=== PATIENT | male | born 1950 | race Caucasian/White ===

== ENCOUNTER 2017-03-06 14:53 | Emergency (ER) | payer OTHER ==
[2017-03-06 15:04] VITALS: BP 142/87
--- NOTE | 2017-03-06 15:27 | ED Physician Documentation ---
PD HPI LOWER EXT INJURY - Stated complaint Stated Complaint: L ANKLE PX - Chief complaint Chief Complaint: Ext Problem - History obtained from History obtained from: Patient, Family - History of Present Illness PD HPI LOW EXT INJURY LOCATION: Left, Ankle, Foot Type of injury: Twist Where injury occurred: Home Timing - onset: How many days ago (2) Timing - duration: Days (2) Timing - details: Gradual onset Pain level max: 5 Pain level now: 3 Improved by: Rest, Ice, Immobilization Worsened by: Moving, Palpating, Other (walking) Associated symptoms: Swelling. No: Weakness, Numbness, Tingling Contributing factors: No: Anticoagulated, Prior ortho surgery Recently seen: Not recently seen Review of Systems Neurologic: denies: Focal weakness, Numbness PD PAST MEDICAL HISTORY - Past Medical History Past Medical History: Yes Cardiovascular: Hypertension, High cholesterol Other Past Medical History: IBS - Present Medications Home Medications: Ambulatory Orders Medication Instructions Recorded Confirmed Nebivolol HCl [Bystolic] 0 mg PO DAILY 03/06/17 03/06/17 RX: Aspirin 81 mg PO DAILY 03/06/17 03/06/17 RX: Simvastatin 0 mg PO DAILY 03/06/17 03/06/17 RX: amLODIPine [Norvasc] 5 mg PO DAILY 03/06/17 03/06/17 - Allergies Allergies/Adverse Reactions: Allergies Allergy/AdvReac Type Severity Reaction Status Date / Time Penicillins Allergy Unknown Verified 03/06/17 15:05 - Social History Does the pt smoke?: No Smoking Status: Never smoker PD ED PE NORMAL - Vitals Vital signs reviewed: Yes - General General: Alert and oriented X 3, No acute distress - Derm Derm: Warm and dry - Extremities Extremities: Other (L foot/ankle - diffuse STS. NVI. TTP over lateral malleolus and dorsum of the midfoot. ) - Neuro Neuro: Alert and oriented X 3 - Psych Psych: Normal mood, Normal affect Results - Vitals Vitals: Vital Signs - 24 hr 03/06/17 15:01 Temperature 36.6 C Heart Rate 58 L Respiratory 16 Rate Blood Pressure 142/87 H O2 Saturation 96 Oxygen O2 Source Room air - Rads (name of study) L ankle xray Radiology: Prelim report reviewed, EMP read contemporaneously, See rad report ( Normal alignment of the ankle without evidence for acute fractures or dislocations. Asymmetric lateral ankle swelling is noted. ) L foot xray Radiology: Prelim report reviewed, EMP read contemporaneously, See rad report ( Normal foot radiography. ) PD MEDICAL DECISION MAKING - ED course Complexity details: reviewed results, re-evaluated patient, considered differential, d/w patient, d/w family ED course: Patient is a 67-year-old male with a left ankle sprain. No acute findings on x- ray. Placed in a gel splint. Declines crutches. Will use Motrin and Tylenol as needed for pain at home. Counseled regarding missed fractures secondary to acute swelling and may need repeat xrays if not improving. Patient and family counseled regarding signs and symptoms for which I believe and urgent re- evaluation would be necessary. Patient with good understanding of and agreement to plan and is comfortable going home at this time This document was made in part using voice recognition software. While efforts are made to proofread this document, sound alike and grammatical errors may occur. Departure - Departure Disposition: 01 Home, Self Care Clinical Impression: Left ankle sprain Qualifiers: Encounter type: initial encounter Involved ligament of ankle: unspecified ligament Qualified Code(s): S93.402A - Sprain of unspecified ligament of left ankle, initial encounter Condition: Good Instructions: ED Sprain Ankle W X Ray Follow-Up: your,doctor in 1 week [Other] Comments: You can use Motrin or Tylenol as needed for pain at home. Return if you worsen. You may bear weight as tolerated. If you are still having pain in 1 week, you should follow-up with your doctor for repeat evaluation.
--- NOTE | 2017-03-06 15:58 | XRAY Preliminary Report ---
Exam: XR Ankle 3 View LT IMPRESSION: 1. Normal alignment of the ankle without evidence for acute fractures or dislocations. 2. Asymmetric lateral ankle swelling is noted. [facility] SITE ID: [id number]
--- NOTE | 2017-03-06 16:00 | XRAY Preliminary Report ---
Exam: XR Foot 3 View LT IMPRESSION: Normal foot radiography. [facility] SITE ID: [id number]
--- NOTE | 2017-03-06 16:01 | XRAY Report ---
EXAM: LEFT ANKLE RADIOGRAPHY EXAM DATE: 03/06/2017 03:50 PM. CLINICAL HISTORY: Ankle/foot swelling s/p inversion injury. COMPARISON: None. TECHNIQUE: 3 views. FINDINGS: Bones: Normal. No fractures or bone lesions. Joints: Normal. No effusion. No subluxations. The ankle mortise is normally aligned. Soft Tissues: Soft tissue swelling at the lateral aspect of the ankle. IMPRESSION: 1. Normal alignment of the ankle without evidence for acute fractures or dislocations. 2. Asymmetric lateral ankle swelling is noted. [facility] Referring Provider Line: [phone] SITE ID: [id number]
--- NOTE | 2017-03-06 16:02 | XRAY Report ---
EXAM: LEFT FOOT RADIOGRAPHY EXAM DATE: 03/06/2017 03:50 PM. CLINICAL HISTORY: Ankle/foot swelling s/p inversion injury. COMPARISON: None. TECHNIQUE: 3 views. FINDINGS: Bones: Normal. No fractures or bone lesions. Joints: Normal. No subluxations. Soft Tissues: Normal. No soft tissue swelling. IMPRESSION: Normal foot radiography. [facility] Referring Provider Line: [phone] SITE ID: [id number]
== END 2017-03-06 16:16 | disposition home or self-care (01) ==
LOC: ED 14:53
DX: S93.402A Sprain of unspecified ligament of left ankle, initial encounter (principal); I10 Essential (primary) hypertension; X50.1XXA Overexertion from prolonged static or awkward postures, initial encounter; Y92.009 Unspecified place in unspecified non-institutional (private) residence as the place of occurrence of the external cause
CPT/HCPCS: 99283

== ENCOUNTER 2018-03-02 10:10 | Emergency (ER) | payer MEDICARE, OTHER ==
--- NOTE | 2018-03-02 12:17 | ED Physician Documentation ---
PD HPI HEENT - Stated complaint Stated Complaint: FACIAL SWELLING - Chief complaint Chief Complaint: General - History obtained from History obtained from: Patient - History of Present Illness Timing - onset: Yesterday Timing - details: Abrupt onset, Still present Location: Tooth (right upper tooth with pain and prior cavity, with worse pain and now swelling of gum and cheek.) Associated symptoms: No: Fever, Congestion, Rhinorrhea, Swollen nodes, Cough Similar symptoms before: Has not had sx before Recently seen: Not recently seen Review of Systems Constitutional: denies: Fever, Myalgias Nose: denies: Rhinorrhea / runny nose, Congestion Throat: reports: Dental pain / toothache. denies: Sore throat Cardiac: denies: Chest pain / pressure, Palpitations Respiratory: denies: Dyspnea, Cough GI: denies: Abdominal Pain, Vomiting Skin: denies: Rash, Lesions Neurologic: denies: Focal weakness, Numbness, Altered mental status, Headache PD PAST MEDICAL HISTORY - Past Medical History Past Medical History: Yes Cardiovascular: Hypertension, High cholesterol GI: Ulcerative colitis - Past Surgical History Past Surgical History: Yes General: Other - Present Medications Home Medications: Ambulatory Orders Medication Instructions Recorded Confirmed Aspirin 81 mg PO DAILY 03/06/17 03/06/17 Nebivolol HCl [Bystolic] 0 mg PO DAILY 03/06/17 03/06/17 Simvastatin 0 mg PO DAILY 03/06/17 03/06/17 amLODIPine [Norvasc] 5 mg PO DAILY 03/06/17 03/06/17 Clindamycin HCl [Cleocin HCl] 300 mg PO TID #21 capsule 03/02/18 Mesalamine [Delzicol] 03/02/18 Naproxen 375 mg PO BID #20 tablet 03/02/18 Tramadol HCl 50 mg PO Q6H PRN #20 tablet 03/02/18 - Allergies Allergies/Adverse Reactions: Allergies Allergy/AdvReac Type Severity Reaction Status Date / Time Penicillins Allergy Unknown Verified 03/02/18 10:18 - Social History Does the pt smoke?: No Smoking Status: Never smoker Does the pt drink ETOH?: No Does the pt have substance abuse?: No - Immunizations Immunizations are current?: No Immunizations: TDAP >10years/unknown, Other immun current PD ED PE NORMAL - Vitals Vital signs reviewed: Yes - General General: Alert and oriented X 3, No acute distress, Well developed/nourished - HEENT HEENT: Pharynx benign, Other (right cheek with swelling but no firmness nor area of fluctuance. Right upper canine tooth (only one remaining on that side) with decay and some swelling/tenderness of gum. No focal fluctuance. ) - Neck Neck: Supple, no meningeal sign, No adenopathy - Cardiac Cardiac: RRR, No murmur - Respiratory Respiratory: Clear bilaterally - Derm Derm: Normal color, Warm and dry, No rash Results - Vitals Vitals: Oxygen O2 Source Room air PD MEDICAL DECISION MAKING - ED course Complexity details: considered differential (feels diffusely swelling and not focal fluid in right cheek. Gum with swelling. Tooth with decay. ), d/w patient - Sepsis Event Vital Signs: Oxygen O2 Source Room air Departure - Departure Disposition: 01 Home, Self Care Clinical Impression: Infected dental caries, Right facial swelling Condition: Stable Record reviewed to determine appropriate education?: Yes Instructions: ED Dental Abscess Facial Cellulitis Prescriptions: Clindamycin HCl [Cleocin HCl] 300 mg PO TID #21 capsule Naproxen 375 mg PO BID #20 tablet Tramadol HCl 50 mg PO Q6H PRN #20 tablet PRN Reason: Pain Comments: Rinse with antiseptic mouthwash couple times a day. Naproxen twice daily for inflammation and pain. Add Tylenol or tramadol if needed for pain. Clindamycin as directed for a week for the infection. Since the tooth is decayed enough to allow germs into the root to cause us infection, it is likely the infection will return in the near future unless he get the tooth taken care of. Follow-up with a dentist for that. Discharge Date/Time: 03/02/18 12:52
[2018-03-02] MEDS ORDERED: CLINDAMYCIN 150 MG CAPSULE PO STA (12:30)
[2018-03-02] MEDS ORDERED: NAPROXEN 250 MG TABLET PO STA (12:30)
[2018-03-02 12:50] VITALS: BP 137/83
== END 2018-03-02 12:52 | disposition home or self-care (01) ==
LOC: ED 10:10
DX: K04.7 Periapical abscess without sinus (principal); K02.9 Dental caries, unspecified; R22.0 Localized swelling, mass and lump, head; I10 Essential (primary) hypertension
CPT/HCPCS: 99283; A9270

== ENCOUNTER 2023-09-25 11:01 | Emergency (ER) | payer MEDICARE ==
[2023-09-25 11:20] VITALS: O2SAT 100
[2023-09-25] MEDS ORDERED: LIDOCAINE 1% 2 ML VIAL SUBQ STA (12:36)
--- NOTE | 2023-09-25 13:03 | ED Physician Documentation ---
PD HPI Fall - Stated complaint Stated Complaint: LT EYE INJ - Chief complaint Chief Complaint: Laceration - History obtained from History obtained from: Patient, Family - History of Present Illness Mechanism of injury: Tripped Fall distance: Standing position Where injury occurred: Home Timing - onset: Today Injury(ies) location: Face Quality of pain: Pain Associated symptoms: No: LOC, AMS, Amnesia, Seizures, Ear drainage, Nasal drainage, Neck pain, Weakness, Paresthesias, Dyspnea, Nausea / vomiting, Hematemesis, Abdominal distension Symptoms improve with: Rest Worsens with: Movement, Palpation Contributing factors: No: Anticoagulated Similar symptoms before: Diagnosis (laceration) Recently seen: Not recently seen - Additional information Additional information: Kobi Kellogg is a 73-year-old male with a history of hypertension who presents today after a fall ground-level tripped over something outside and fell onto his left face. He has a laceration above his left eye. He has no issue with the eyesight or use of the eye he did not get knocked out he has no nausea diff iculty concentrating or dizziness. He denies any neck pain. He has not been ill recently. Review of Systems Constitutional: denies: Fever Respiratory: denies: Cough GI: denies: Nausea, Vomiting, Diarrhea Skin: reports: Laceration (s) PD PAST MEDICAL HISTORY - Past Medical History Past Medical History: Yes Cardiovascular: Hypertension, High cholesterol GI: Ulcerative colitis - Past Surgical History Past Surgical History: Yes General: Other - Present Medications Home Medications: Ambulatory Orders Medication Instructions Recorded Confirmed Aspirin 81 mg PO DAILY 03/06/17 03/06/17 Nebivolol HCl [Bystolic] 0 mg PO DAILY 03/06/17 03/06/17 Simvastatin 0 mg PO DAILY 03/06/17 03/06/17 amLODIPine [Norvasc] 5 mg PO DAILY 03/06/17 03/06/17 Mesalamine [Delzicol] 03/02/18 Naproxen 375 mg PO BID #20 tablet 03/02/18 Tramadol HCl 50 mg PO Q6H PRN #20 tablet 03/02/18 clindamycin HCL [Cleocin HCl] 300 mg PO TID #21 capsule 03/02/18 - Allergies Allergies/Adverse Reactions: Allergies Allergy/AdvReac Type Severity Reaction Status Date / Time Penicillins Allergy Unknown Verified 09/25/23 11:20 - Social History Does the pt smoke?: No Smoking Status: Never smoker Does the pt drink ETOH?: No Does the pt have substance abuse?: No - Immunizations Immunizations are current?: No Immunizations: TDAP >10years/unknown, Other immun current - POLST Patient has POLST: No PD ED PE NORMAL - Vitals Vital signs reviewed: Yes (tachy and hypertensive ) - General General: Alert and oriented X 3, No acute distress, Well developed/nourished - HEENT HEENT: PERRL, EOMI, Other (there is a 3.5cm laceration to the lateral aspect of the left eye above the eyebrow. The wound is clean and deeper structures are not involved. 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, No motor deficit, No sensory deficit, Normal speech Eye Opening: Spontaneous Motor: Obeys Commands Verbal: Oriented GCS Score: 15 - Psych Psych: Normal mood, Normal affect Results - Vitals Vitals: Vital Signs - 24 hr 09/25/23 11:17 Temperature 36.4 C L Heart Rate 101 H Respiratory 20 Rate Blood Pressure 150/93 H O2 Saturation 100 Oxygen O2 Source Room air Procedures - Laceration (location) left face Length in cm: 3.5 Wound type: Linear, Flap, Into subcut fat, Clean Neurovascular status: Sensory intact, Motor intact, Vascular intact Anesthesia: Lidocaine 1% Wound preparation: Hibiclens, Irrigated copiously NS, Wound explored, To the base Skin layer closure: Nylon, Interrupted, Size #-0 - enter number (5-0) Other: Patient tolerated well, No complications, Neurovascular intact, Tetanus UTD PD Medical Decision Making - ED course Complexity details: reviewed results, re-evaluated patient, considered differential, d/w patient ED course: 73-year-old male with a fall and a laceration above the left eye has suturing he has no evidence of concussion associated with this or neck injury. Departure - Departure Disposition: 01 Home, Self Care Clinical Impression: Facial laceration Qualifiers: Encounter type: initial encounter Qualified Code(s): S01.81XA - Laceration without foreign body of other part of head, initial encounter Condition: Stable Instructions: ED Laceration Facial Sutr Tape Follow-Up: Herbie Cagle DO [Provider Admit Priv/Credential] - Comments: Kobi, today it looks like you have a laceration to your forehead and the sutures will need to be removed in 5 to 6 days.
[2023-09-25 13:31] VITALS: BP 130/88
== END 2023-09-25 13:23 | disposition home or self-care (01) ==
LOC: ED 11:01
DX: S01.81XA Laceration without foreign body of other part of head, initial encounter (principal); W01.0XXA Fall on same level from slipping, tripping and stumbling without subsequent striking against object, initial encounter; Y92.007 Garden or yard of unspecified non-institutional (private) residence as the place of occurrence of the external cause; I10 Essential (primary) hypertension
CPT/HCPCS: 12013; 99282

== ENCOUNTER 2023-09-26 13:32 | Outpatient (CLI) | payer MEDICARE, OTHER ==
--- NOTE | 2023-09-26 15:05 | XRAY Report ---
PROCEDURE: Toe(s) 2+V LT INDICATIONS: PAIN LEFT DISTAL BIG TOE TECHNIQUE: 3 views of the first toe(s) acquired. COMPARISON: None. FINDINGS: Bones: No fractures or dislocations. No suspicious bony lesions. Soft tissues: No suspicious soft tissue densities. IMPRESSION: No displaced fracture. If there remains a high clinical concern, consider repeat radiographs in 10-14 days to evaluate for healing fracture. Reviewed by: Tanner Ibarra MD on 09/26/2023 3:04 PM PST Approved by: Tanner Ibarra MD on 09/26/2023 3:04 PM PST Station ID: [id number]
== END 2023-09-26 13:33 | disposition home or self-care (01) ==
LOC: DI.N 13:32
PROVIDERS: ATTEND Physician Assistant
DX: M79.675 Pain in left toe(s) (principal)
CPT/HCPCS: 73660